=== PATIENT | female | born 1970 | race Two or more races ===

== ENCOUNTER → 2018-03-29 | Outpatient (CLI) | payer BC ==
[~2018-03-29] MED LIST: AZIT-1 PO; FURO-45 PO; IBU800 PO; MELO-150 PO; PREN-67 PO
--- NOTE | 2018-03-29 15:40 | RADIOLOGY IMAGING REPORT ---
FACILITY: [facility] [place] PATIENT NAME: Mila Snowden : 1970 MR: [id number] V: [id number] EXAM DATE: ORDERING PHYSICIAN: BHAVESH DÍAZ TECHNOLOGIST: Location: Patient: Mila Snowden : 1970 Visit/Account:[id number] Date of Sevice: 03/29/2018 Exam type: CHEST PA AND LAT History: productive cough for a week. Comparison: None. Findings: There is subtle linear densities seen in the medial left lower lobe which may represent atelectasis o r scarring versus developing infiltrate. There is no evidence of pleural effusions or overt pulmonar y edema. Cardiac silhouette is normal in size. Trachea is in midline. There are mild spondylotic c hanges of the thoracic spine. IMPRESSION: 1. Subtle linear densities in the medial left lower lobe may represent scarring, atelectasis versus developing infiltrate. Report Dictated By: Angeles Jim MD at 03/29/2018 3:35 PM Report E-Signed By: Angeles Jim MD at 03/29/2018 3:36 PM WSN:[email or web address]
== END ==
LOC: RAD 15:00
PROVIDERS: ATTEND Emergency Medicine
DX: R91.8 Other nonspecific abnormal finding of lung field (principal)
CPT/HCPCS: 71046

== ENCOUNTER → 2018-04-04 | Outpatient (CLI) | payer BC ==
[~2018-04-04] MED LIST changes: +BENZ200C15 PO; +METH4TAB66 PO; +NAPR500T31 PO
--- NOTE | 2018-04-04 17:21 | RADIOLOGY IMAGING REPORT ---
FACILITY: [facility] [place] PATIENT NAME: Mila Snowden : 1970 MR: [id number] V: [id number] EXAM DATE: ORDERING PHYSICIAN: GENET GARCIA TECHNOLOGIST: Location: [facility] Patient: Mila Snowden : 1970 Visit/Account:[id number] Date of Sevice: 04/04/2018 Examination: CHEST PA AND LAT Comparison: 03/29/2018 History: Continued cough. Findings: No consolidation, nodule, or peribronchial inflammation. No pneumothorax, edema, or effusio n. Cardiac and hilar contour size is normal. Osseous structures are intact. IMPRESSION: No evidence of acute cardiopulmonary disease. Report Dictated By: Garfield Felder MD at 04/04/2018 5:16 PM Report E-Signed By: Garfield Felder MD at 04/04/2018 5:17 PM WSN:[id number]
== END ==
LOC: RAD 16:54
PROVIDERS: ATTEND Nurse Practitioner Primary Care
DX: R05 Cough (principal)
CPT/HCPCS: 71046

== ENCOUNTER → 2018-05-01 | Outpatient (CLI) | payer BC ==
[~2018-05-01] MED LIST changes: +MEDR10TA57 PO
== END ==
LOC: LAB 14:52
PROVIDERS: ATTEND Student in an Organized Health Care Education/Training Program
DX: N92.0 Excessive and frequent menstruation with regular cycle (principal)
CPT/HCPCS: 36415; 84443; 85027

== ENCOUNTER → 2018-05-10 | Outpatient (CLI) | payer BC ==
--- NOTE | 2018-05-10 14:28 | RADIOLOGY IMAGING REPORT ---
FACILITY: [facility] [place] PATIENT NAME: Mila Snowden : 1970 MR: [id number] V: [id number] EXAM DATE: ORDERING PHYSICIAN: GAGAN LEES TECHNOLOGIST: Location: [facility] Patient: Mila Snowden : 1970 Visit/Account:[id number] Date of Sevice: 05/10/2018 TRANSVAGINAL NON-OB HISTORY: ABNORMAL UTERINE AND VAGINAL BLEEDING, UNSPECIFIED TECHNIQUE: Transvaginal ultrasound pelvis. COMPARISON: October 07, 2010 FINDINGS: Uterus: ; 9.4 cm length x 4.1 cm AP x 6.4 cm transverse. Myometrium: There is a section scar along the anterior border of the lower uterine segment. Endometrium: Unremarkable; double thickness 11 mm. Cervix: Nabothian cysts. Ovaries: Right - not visualized Left - 6. 4 x 4 by 5.5 cm there is a 4.9 x 5.5 x 4.1 cm left ovarian cyst in addition to a 1.3 c m left ovarian cyst Blood flow is documented in the left ovary by duplex Doppler ultrasound. Adnexa: Grossly unremarkable. Free pelvic fluid: Mild. IMPRESSION: 5.5 cm left ovarian cyst and 1.3 cm left ovarian cyst Right ovary not visualized Mild amount of free pelvic fluid Report Dictated By: Angeles Jim MD at 05/10/2018 2:16 PM Report E-Signed By: Angeles Jim MD at 05/10/2018 2:22 PM WSN:[email or web address]
== END ==
LOC: RAD 09:55
PROVIDERS: ATTEND Student in an Organized Health Care Education/Training Program
DX: Z02.9 Encounter for administrative examinations, unspecified (principal)
CPT/HCPCS: 76830

== ENCOUNTER → 2018-05-10 | Outpatient (CLI) | payer BC ==
[2018-05-10 10:38] LABS: LDL CHOLESTEROL 116 mg/dl
== END ==
LOC: LAB 09:30
PROVIDERS: ATTEND Student in an Organized Health Care Education/Training Program
DX: Z00.00 Encounter for general adult medical examination without abnormal findings (principal)
CPT/HCPCS: 36415; 82040; 82247; 82310; 82374; 82435; 82465; 82565; 82947; 83036; 83718; 84075; 84132; 84155; 84295; 84443; 84450; 84460; 84478; 84520; 85027

== ENCOUNTER → 2018-07-02 | Outpatient (CLI) | payer BC ==
[~2018-07-02] MED LIST changes: +OXYGENHOME INH; +POTA-23 PO
== END ==
LOC: RAD 14:32
PROVIDERS: ATTEND Student in an Organized Health Care Education/Training Program
DX: Z02.9 Encounter for administrative examinations, unspecified (principal)

== ENCOUNTER → 2018-07-04 | Outpatient (CLI) | payer BC ==
--- NOTE | 2018-07-04 16:53 | RADIOLOGY IMAGING REPORT ---
FACILITY: [facility] [place] PATIENT NAME: SUHA PAEZ : [id number] MR: [id number] V: [id number] EXAM DATE: [id number] ORDERING PHYSICIAN: GAGAN LEES TECHNOLOGIST: Lidia Mckenzie PROCEDURE:BILATERAL DIGITAL SCREENING MAMMOGRAM WITH CAD ASSISTED INTERPRETATION & 3D TOMOSYNTHESIS COMPARISON:Prior mammograms 01/20/17, 01/05/17, 01/17/13, 01/11/13. INDICATIONS:SCREENING FINDINGS: Moderately dense fibroglandular tissue is seen throughout the breasts. The parenchymal pattern has remained stable allowing for difference in mammographic technique & patient positioning. There is no evidence of malignant appearing mass, malignant appearing calcifications or other secondary sign of malignancy in either breast. DIAGNOSTIC CATEGORY 1--NEGATIVE. RECOMMENDATIONS: ROUTINE MAMMOGRAM AND CLINICAL EVALUATION. IMPRESSION: BIRADS 1: Negative. No significant abnormality is seen. Dictated by: Angeles Jim M.D. on 07/04/2018 at 11:13 Transcribed by: HEIDI on 07/04/2018 at 11:15 Approved by: Angeles Jim M.D. on 07/04/2018 at 16:51 [facility]
== END ==
LOC: MAMO 02:42
PROVIDERS: ATTEND Student in an Organized Health Care Education/Training Program
DX: Z12.31 Encounter for screening mammogram for malignant neoplasm of breast (principal)
CPT/HCPCS: 77063; 77067

== ENCOUNTER → 2018-07-16 | Outpatient (CLI) | payer BC ==
--- NOTE | 2018-07-16 13:21 | RADIOLOGY IMAGING REPORT ---
FACILITY: [facility] [place] PATIENT NAME: Mila Snowden : 1970 MR: [id number] V: [id number] EXAM DATE: ORDERING PHYSICIAN: GAGAN LEES TECHNOLOGIST: Location: [facility] Patient: Mila Snowden : 1970 Visit/Account:[id number] Date of Sevice: 07/16/2018 Pelvic ultrasound HISTORY: Follow-up left ovarian cyst TECHNIQUE: Transvaginal ultrasound pelvis. Zamora scale, color and Duplex imaging was performed. COMPARISON: Ultrasound 05/10/2018 FINDINGS: Uterus: Anteverted; 11.3 cm length x 5 cm AP x 5 cm transverse. Myometrium: 9 mm echogenic focus anterior lower uterine segment may be prior scar.. Endometrium: Unremarkable; double thickness 14 mm. Cervix: Nabothian cysts are noted. Ovaries: Right - not visualized Left - 3.5 x 2.5 x 2.2 cm. There is a small 1.7 cm paraovarian cyst and a 1.9 cm ovarian follicl e. The previous described 5 cm left ovarian cyst has resolved. Blood flow is documented in each ovary by duplex Doppler ultrasound. Adnexa: Grossly unremarkable. Free pelvic fluid: Small amount. IMPRESSION: 1. Normal uterus. 2. Right ovary is not visualized. 3. Interval resolution of the previous described 5.7 cm left ovarian cyst. Small benign 1.7 cm para ovarian cyst is noted. Report Dictated By: Dk Alba MD at 07/16/2018 1:13 PM Report E-Signed By: Dk Alba MD at 07/16/2018 1:18 PM WSN:[email or web address]
== END ==
LOC: RAD 09:09
PROVIDERS: ATTEND Student in an Organized Health Care Education/Training Program
DX: N83.202 Unspecified ovarian cyst, left side (principal)
CPT/HCPCS: 76830

== ENCOUNTER → 2018-10-19 | Outpatient (CLI) | payer BC | LOC: RESP 20:04 | PROVIDERS: ATTEND Emergency Medicine | DX: G47.33 Obstructive sleep apnea (adult) (pediatric) (principal) ==

== ENCOUNTER → 2018-11-16 | Outpatient (CLI) | payer BC | LOC: US 02:13 | PROVIDERS: ATTEND Nurse Practitioner Family | DX: G47.30 Sleep apnea, unspecified (principal); R06.02 Shortness of breath | CPT/HCPCS: 93306 ==

== ENCOUNTER 2018-11-27 11:30 | Outpatient (RCR) | payer BC ==
[~2018-11-27] VITALS: Ht 165.1 cm; Wt 122.0 kg
--- NOTE | 2018-11-28 13:08 | Medical Nutrition Therapy ---
Nutrition Anthropometrics Height (Inches): 65 Weight (Pounds): 269 BMI: 44.8 Ken Nutrition Score: Ken Nutrition Risk Score: Dietary Referral Nutrition Risk Factors: Nutrition Risk Comment: Physical Findings Physical Appearance: Morbidly Obese 40+ Skin Appearance Skin Appearance: Edema Edema Location Modifier: Edema Location: Type of Edema: Degree of Edema: Gastrointestinal Symptoms GI Symtoms: Tube Present: Bowel Sounds: Recent Bowel Pattern: Stool Characteristics: Nutrition/Food History Breakfast: 9:30- 11:00 egg, cookie or cereal with almond milk + coffee Lunch: skips Dinner: 3:30: meat, beans, salad Snacks: 9:00 PM, fruit or cereal/almond milk Nutritional Education Nutrition Education Topic: Diabetic Nutrition (pre-diabetes) Teaching Methods: Discussion, Handout, Demonstration Response to Teaching: Verbalize understanding Teaching Recipient: Patient Nutrition Counseling: Pt of heritage. Pt refused registered radiation therapist line. Accepts info in either Guyanese or Arabic. Reviewed prediabets vs diabetes. discussed importance of wt loss and exercise to delay or avoid diabetes. Pt family from [place] and leaving later in week to visit. Pt states easier for pt to lose wt in [place] as she has access to low cost fruits/veg. Reviewed food groups and plate method. Provided sinhala copy of plate method highlighting her cultural foods. Recommended 30-45gm CGO or 1c CHO/meal. Encouraged minimum of 150 minutes exercise/week. Pt will f/u in 3 weeks, 12/18 @ 10:00. Nutrition Monitoring & Eval RD Patient Assessment Time: 60 minutes Nutritional Comment: provided 60 minutes MNT for dx prediabetes. Copies to: TOBI EDWARD APRN MEDICAL RECORDS TECH-C ; JAMISON PANTOJA Nov 27, 2018 17:12
--- NOTE | 2018-12-25 13:04 | Medical Nutrition Therapy ---
Nutrition Anthropometrics Height (Inches): 65 Weight (Pounds): 269 BMI: 44.8 Ken Nutrition Score: Ken Nutrition Risk Score: Dietary Referral Nutrition Risk Factors: Nutrition Risk Comment: Nutritional Education Nutrition Education Topic: Diabetic Nutrition (prediabetes) Learning Readiness: Interested Teaching Methods: Discussion, Handout Response to Teaching: Verbalize understanding Teaching Recipient: Patient Nutrition Counseling: Wt stable from last session however pt had been on vacation. Pt thougth she would be eating more fruits and veg however she said she was tempted by cultural foods avialable. Reviewed how to get back on track. Pt will limit CHO to 1c or 2 servings/meal, 3oz meat and unlimited vegetables. Encourage pt not to have food in house that temps her. Pt agreed not to bake cookies but will get cookies for that she doesn't like. Pt will cont driniking club soda and try unsweetened beverages. Pt will f/u 01/08 & 10:00. Nutrition Monitoring & Eval RD Patient Assessment Time: 30 minutes Nutritional Comment: provided 30 minutes MNT for dx prediabetes. Copies To Copies to: TOBI EDWARD APRNP-C ; JAMISON PANTOJA Dec 25, 2018 13:04
== END 2019-01-01 ==
LOC: DIET 11:30
PROVIDERS: ATTEND Nurse Practitioner Family
DX: R73.03 Prediabetes (principal); E66.9 Obesity, unspecified; Z68.41 Body mass index [BMI] 40.0-44.9, adult
CPT/HCPCS: 97802